=== PATIENT | female | born 1990 | race African-American/Black ===

== ENCOUNTER 2024-01-26 08:14 | Emergency (ER) | payer OTHER ==
[~2024-01-26] VITALS: Ht 175.3 cm; Wt 89.8 kg
[2024-01-26 08:15] VITALS: PULSE 89; RESP 16; TEMP 97.5; O2SAT 100
[2024-01-26] MEDS: IBUPROFEN 600 MG TAB PO STA (10:12)
[2024-01-26] MEDS: DEXAMETHASONE SOD PHOS INJ 4 MG/ML SDV IM ONE (10:12)
[2024-01-26] MEDS ORDERED: METHOCARBAMOL750 MG PO (10:50)
[2024-01-26] MEDS ORDERED: NAPROXEN500 MG PO (10:51)
== END 2024-01-26 12:05 | disposition home or self-care (01) ==
LOC: FSED 08:20
DX: S39.012A Strain of muscle, fascia and tendon of lower back, initial encounter (principal); M62.830 Muscle spasm of back; I10 Essential (primary) hypertension
CPT/HCPCS: 72100; 81003; 81025; 99284; J1100